=== PATIENT | male | born 1960 | race Caucasian/White ===

== ENCOUNTER 2019-12-08 09:28 | Inpatient (IN) | payer BC ==
[~2019-12-08] VITALS: Ht 180.3 cm; Wt 112.0 kg
[2019-12-08] MEDS ORDERED: albuterol 2.5 MG/3 ML nebule NEB ONE (10:10)
[2019-12-08 10:13] LABS: BASOPHILS % (AUTO) 0.6 % (0-1); EOSINOPHILS # (AUTO) 0.2 X10'3 (0-0.9); EOSINOPHILS % (AUTO) 3.6 % (0-6); HEMATOCRIT 41.9 % (42.0-52.0); HEMOGLOBIN 14.1 g/dl (14.0-17.9); LYMPHOCYTES # (AUTO) 1.4 X10'3 (1.1-4.8); LYMPHOCYTES % (AUTO) 27.2 % (21-51); MEAN CORPUSCULAR HEMOGLOBIN 30.9 PG (27.0-31.0); MEAN CORPUSCULAR HGB CONC 33.8 g/dL (33.0-36.5); MEAN CORPUSCULAR VOLUME 91.6 FL (78-98); MEAN PLATELET VOLUME 8.2 FL (7.4-10.4); MONOCYTES # (AUTO) 0.3 X10'3 (0-0.9); MONOCYTES % (AUTO) 6.3 % (2-12); NEUTROPHILS # (AUTO) 3.2 X10'3 (1.8-7.7); NEUTROPHILS % (AUTO) 62.3 % (42-75); PLATELET COUNT 302 X10'3 (140-440); RED BLOOD COUNT 4.57 X10'6 (4.70-6.10); RED CELL DISTRIBUTION WIDTH 15.2 % (11.5-14.5); WHITE BLOOD COUNT 5.2 X10'3 (4.5-11.0)
[2019-12-08 10:19] LABS: PARTIAL THROMBOPLASTIN TIME 26 SECONDS (22-32)
--- NOTE | 2019-12-08 10:25 | NUR ---
Breaking primary RN, respiratory in room with pt,
[2019-12-08 10:28] LABS: D-DIMER 0.84 MG/L FEU (0-0.50)
[2019-12-08 10:31] LABS: ALANINE AMINOTRANSFERASE 42 U/L (12-78); ALBUMIN 3.2 G/DL (3.4-5.0); ALBUMIN/GLOBULIN RATIO 0.8 (1.1-1.5); ALKALINE PHOSPHATASE 55 IU/L (46-116); ASPARTATE AMINO TRANSFERASE 28 U/L (10-37); BILIRUBIN,TOTAL 0.4 MG/DL (0.1-1.0); CALCIUM 8.7 MG/DL (8.5-10.1); CHLORIDE 104 MMOL/L (99-107); GLUCOSE 172 MG/DL (70-104); SODIUM 139 MMOL/L (135-145); TOTAL CARBON DIOXIDE 27.2 MMOL/L (24-32); TOTAL PROTEIN 7.2 G/DL (6.4-8.2); eGFR 76 ML/MIN
[2019-12-08 10:32] LABS: ANION GAP 8 (8-16); BLOOD UREA NITROGEN 7 MG/DL (7-18)
--- NOTE | 2019-12-08 10:41 | NUR ---
Breaking Primary RN, RT is finished with pt, he is still sounding junky, spoke to provider Jeannette, he will order continuous neb and steriod, pt is to have CT
[2019-12-08] MEDS ORDERED: iohexol 350MG/ML 100ml bottle IV ONE (10:42)
[2019-12-08] MEDS ORDERED: albuterol 2.5 MG/3 ML nebule CONTNEB PRN (10:45)
[2019-12-08] MEDS ORDERED: methylPREDNISolone sod succ 125mg/2ml vial IV ONE (10:45)
[2019-12-08] MEDS ORDERED: MEROPENEM 1GM/NS 50ML IVPB 50 ML IV STA (12:53)
[2019-12-08] MEDS ORDERED: CefTRIAXone/D5W-Rocephin 1gm 50 ML IV ONE (12:55)
[2019-12-08] MEDS ORDERED: diphenhydrAMINE 25mg capsule PO PRN (14:20)
[2019-12-08] MEDS ORDERED: morphine 2 MG/ML inj. syringe IV PRN ×2 (14:20)
[2019-12-08] MEDS ORDERED: magnesium Cl slow-release 64mg tablet PO PRN (14:20)
[2019-12-08] MEDS ORDERED: HYDROcodone/acetaminophen 5mg/325mg tablet PO PRN (14:20)
[2019-12-08] MEDS ORDERED: potassium CL 10mEq/100ml bag 100 ML IV PRN ×2 (14:20)
[2019-12-08] MEDS ORDERED: acetaminophen 650mg rectal suppository RC PRN (14:20)
[2019-12-08] MEDS ORDERED: mag hydrox/Alum hydrox/simeth 30ml oral suspension PO PRN (14:20)
[2019-12-08] MEDS ORDERED: magnesium 4gm in 100ml NS 100 ML IV PRN (14:20)
[2019-12-08] MEDS ORDERED: acetaminophen 325mg tablet PO PRN ×2 (14:20)
[2019-12-08] MEDS ORDERED: magnesium hydroxide 30ml (MOM) UD suspension PO PRN (14:20)
[2019-12-08] MEDS ORDERED: potassium Cl 20 mEq SR tablet PO PRN ×2 (14:20)
[2019-12-08] MEDS ORDERED: magnesium 2GM in 50ml NS 50 ML IV PRN (14:20)
[2019-12-08] MEDS ORDERED: bisacodyl 10mg suppository rectal RC PRN (14:20)
[2019-12-08] MEDS ORDERED: HYDROcodone/acetaminophen 10/325mg tab PO PRN (14:20)
[2019-12-08] MEDS ORDERED: ondansetron/PF 4mg/2ml inj IV PRN (14:20)
[2019-12-08] MEDS: normal saline 1000ml 1,000 ML IV SCH (14:32)
[2019-12-08] MEDS: ipratropium/albuterol 3ml nebule NEB SCH ×2 (15:00→20:03)
[2019-12-08 15:05] LABS: HEMOGLOBIN A1C 6.3 % (4.5-6.2)
[2019-12-08] MEDS: levoFLOXACIN-Levaquin 750MG/D5 150 ML IV SCH (15:14)
[2019-12-08 16:15] VITALS: BP 147/93
--- NOTE | 2019-12-08 16:45 | NUR ---
Patient to room 360 A via wheelchair with x1 staff. Patient alert, oriented and in no apparent distress at this time. VSS, call light in reach, bed locked and lowered. Patient lungs coarse in the lower lungs and upper lungs wheezy. Patient skin clean dry and intact.
[2019-12-08] MEDS: metoprolol succinate 25mg (24-HOUR) SR. Tablet PO SCH (17:42)
--- NOTE | 2019-12-08 18:16 | NUR ---
Problems reprioritized. Patient report given, questions answered & plan of care reviewed with LEÓN Luis.
--- NOTE | 2019-12-08 18:25 | NUR ---
Patient in room [facility]. I have received report from LEÓN Senior and had the opportunity to ask questions and assume patient care. Addendum: 12/08/19 at 1826 by Lauren Falcon RN Amended: Links added.
[2019-12-08 19:00] VITALS: BP 156/83
[2019-12-08] MEDS: methylPREDNISolone sod succ 125mg/2ml vial IV SCH (19:50)
[2019-12-08] MEDS: heparin, porcine 5000 units/ml vial SQ SCH (19:50)
[2019-12-08] MEDS: K and/or MAG REPLACEMENT MC SCH (20:00)
[2019-12-08] MEDS ORDERED: guaiFENesin/DM 10ml UD oral syrup PO PRN (20:30)
[2019-12-08] MEDS ORDERED: temazepam 15mg capsule PO PRN (21:00)
[2019-12-09] VITALS: BP 155/92
[2019-12-09] MEDS: ipratropium/albuterol 3ml nebule NEB SCH ×5 (00:17→15:00)
[2019-12-09] MEDS: normal saline 1000ml 1,000 ML IV SCH ×2 (01:18→11:54)
[2019-12-09] MEDS: methylPREDNISolone sod succ 125mg/2ml vial IV SCH ×4 (01:18→20:00)
[2019-12-09 04:50] LABS: BASOPHILS % (AUTO) 0.1 % (0-1); EOSINOPHILS % (AUTO) 0 % (0-6); HEMATOCRIT 39.9 % (42.0-52.0); HEMOGLOBIN 13.6 g/dl (14.0-17.9); LYMPHOCYTES # (AUTO) 0.9 X10'3 (1.1-4.8); LYMPHOCYTES % (AUTO) 11.5 % (21-51); MEAN CORPUSCULAR HEMOGLOBIN 31.1 PG (27.0-31.0); MEAN CORPUSCULAR HGB CONC 34.1 g/dL (33.0-36.5); MEAN CORPUSCULAR VOLUME 91.3 FL (78-98); MEAN PLATELET VOLUME 8.2 FL (7.4-10.4); MONOCYTES # (AUTO) 0.1 X10'3 (0-0.9); MONOCYTES % (AUTO) 1.7 % (2-12); NEUTROPHILS # (AUTO) 6.7 X10'3 (1.8-7.7); NEUTROPHILS % (AUTO) 86.7 % (42-75); PLATELET COUNT 311 X10'3 (140-440); RED BLOOD COUNT 4.37 X10'6 (4.70-6.10); RED CELL DISTRIBUTION WIDTH 15.1 % (11.5-14.5); WHITE BLOOD COUNT 7.8 X10'3 (4.5-11.0)
[2019-12-09 05:11] LABS: ALANINE AMINOTRANSFERASE 38 U/L (12-78); ALBUMIN/GLOBULIN RATIO 0.8 (1.1-1.5); ALKALINE PHOSPHATASE 49 IU/L (46-116); ANION GAP 10 (8-16); ASPARTATE AMINO TRANSFERASE 20 U/L (10-37); BILIRUBIN,TOTAL 0.2 MG/DL (0.1-1.0); BLOOD UREA NITROGEN 11 MG/DL (7-18); BUN/CREATININE RATIO 12.2 (5.4-32.0); CALCIUM 8.5 MG/DL (8.5-10.1); CHLORIDE 105 MMOL/L (99-107); CHOL/HDL RATIO 4.7 (0.00-4.99); CHOLESTEROL 237 MG/DL (0-200); GLUCOSE 176 MG/DL (70-104); HDL CHOLESTEROL 50 MG/DL (35-60); LDL CHOLESTEROL 173 MG/DL (50-100); MAGNESIUM 2.2 MG/DL (1.5-2.4); PHOSPHORUS 3.1 MG/DL (2.3-4.5); POTASSIUM 4.2 MMOL/L (3.5-5.1); SODIUM 141 MMOL/L (135-145); TOTAL CARBON DIOXIDE 26.1 MMOL/L (24-32); TOTAL PROTEIN 6.9 G/DL (6.4-8.2); TRIGLYCERIDES 61 MG/DL (20-135); eGFR 86 ML/MIN
--- NOTE | 2019-12-09 06:20 | NUR ---
Patient in room [facility]. I have received report from LEÓN Luis and had the opportunity to ask questions and assume patient care.
--- NOTE | 2019-12-09 06:22 | NUR ---
Problems reprioritized. Patient report given, questions answered & plan of care reviewed with LEÓN RODRIGUEZ. Addendum: 12/09/19 at 0623 by Lauren Falcon RN Amended: Links added.
[2019-12-09 07:07] VITALS: BP 169/105
[2019-12-09 07:08] VITALS: BP 158/93
[2019-12-09] MEDS ORDERED: NO HOME MEDS (07:26)
[2019-12-09] MEDS: K and/or MAG REPLACEMENT MC SCH ×2 (07:27→20:00)
[2019-12-09] MEDS: levoFLOXACIN-Levaquin 750MG/D5 150 ML IV SCH (07:44)
[2019-12-09] MEDS: metoprolol succinate 25mg (24-HOUR) SR. Tablet PO SCH (07:45)
[2019-12-09] MEDS: heparin, porcine 5000 units/ml vial SQ SCH ×2 (07:45→19:59)
[2019-12-09 11:33] VITALS: BP 175/103
[2019-12-09 14:10] VITALS: BP 145/80
[2019-12-09] MEDS ORDERED: pantoprazole 40mg Tablet.DR PO ONE (17:52)
[2019-12-09] MEDS ORDERED: ipratropium/albuterol 3ml nebule NEB PRN (17:55)
[2019-12-09 18:00] VITALS: BP 152/100
--- NOTE | 2019-12-09 18:25 | NUR ---
Problems reprioritized. Patient report given, questions answered & plan of care reviewed with LEÓN Wallace.
--- NOTE | 2019-12-09 19:00 | NUR ---
Paged hospitalist regarding patient BP: 152/100, Patient is asymptomatic. Hospitalist never returned my call.
[2019-12-09] MEDS: lactobacillus rhamnosus 10,000 MMU CELLS/CAPSULE PO SCH (19:59)
[2019-12-09 20:33] LABS: CLARITY,URINE CLEAR (Clear); COLOR,URINE STRAW (Yellow); GLUCOSE, URINE >=1000 mg/dl (Neg); KETONES,URINE NEGATIVE (Neg); LEUKOCYTE ESTERASE ,URINE NEGATIVE (Neg); NITRITES, URINE NEGATIVE (Neg); OCCULT BLOOD,URINE NEGATIVE (Neg); PH,URINE 6.5 (4.8-8.0); PROTEIN,URINE NEGATIVE (Neg); UA COLLECTION TYPE NON-SPECIFIED; UROBILINOGEN,URINE 0.2 E.U/dL (0.2-1.0)
[2019-12-09 20:38] LABS: BACTERIA,URINE NONE SEEN /HPF (Neg); RBC,URINE NONE SEEN /HPF (0-2); SQUAMOUS EPITHELIAL CELL,UR FEW /LPF (FEW); WBC,URINE NONE SEEN /HPF (0-4)
[2019-12-10 00:55] VITALS: BP 159/94
[2019-12-10] MEDS: methylPREDNISolone sod succ 125mg/2ml vial IV SCH ×3 (02:04→14:00)
[2019-12-10 05:30] LABS: BASOPHILS % (AUTO) 0.1 % (0-1); EOSINOPHILS % (AUTO) 0 % (0-6); HEMATOCRIT 40.3 % (42.0-52.0); HEMOGLOBIN 13.9 g/dl (14.0-17.9); LYMPHOCYTES # (AUTO) 1.2 X10'3 (1.1-4.8); LYMPHOCYTES % (AUTO) 8.8 % (21-51); MEAN CORPUSCULAR HEMOGLOBIN 31.5 PG (27.0-31.0); MEAN CORPUSCULAR HGB CONC 34.5 g/dL (33.0-36.5); MEAN CORPUSCULAR VOLUME 91.4 FL (78-98); MEAN PLATELET VOLUME 8.6 FL (7.4-10.4); MONOCYTES # (AUTO) 0.4 X10'3 (0-0.9); MONOCYTES % (AUTO) 2.9 % (2-12); NEUTROPHILS # (AUTO) 12.2 X10'3 (1.8-7.7); NEUTROPHILS % (AUTO) 88.2 % (42-75); PLATELET COUNT 387 X10'3 (140-440); RED BLOOD COUNT 4.41 X10'6 (4.70-6.10); RED CELL DISTRIBUTION WIDTH 15.2 % (11.5-14.5); WHITE BLOOD COUNT 13.9 X10'3 (4.5-11.0)
[2019-12-10 05:35] LABS: ALANINE AMINOTRANSFERASE 42 U/L (12-78); ALBUMIN 3.1 G/DL (3.4-5.0); ALBUMIN/GLOBULIN RATIO 0.8 (1.1-1.5); ALKALINE PHOSPHATASE 50 IU/L (46-116); ANION GAP 8 (8-16); ASPARTATE AMINO TRANSFERASE 20 U/L (10-37); BILIRUBIN,TOTAL 0.2 MG/DL (0.1-1.0); BLOOD UREA NITROGEN 15 MG/DL (7-18); BUN/CREATININE RATIO 16.5 (5.4-32.0); CALCIUM 8.8 MG/DL (8.5-10.1); CHLORIDE 107 MMOL/L (99-107); CREATININE 0.91 MG/DL (0.60-1.10); GLUCOSE 170 MG/DL (70-104); MAGNESIUM 2.3 MG/DL (1.5-2.4); POTASSIUM 4.1 MMOL/L (3.5-5.1); SODIUM 142 MMOL/L (135-145); TOTAL CARBON DIOXIDE 26.6 MMOL/L (24-32); eGFR 85 ML/MIN
--- NOTE | 2019-12-10 06:31 | NUR ---
Problems reprioritized. Patient report given, questions answered & plan of care reviewed with LEÓN Cool.
--- NOTE | 2019-12-10 06:34 | NUR ---
Patient in room [facility]. I have received report from LEÓN Wallace and had the opportunity to ask questions and assume patient care.
[2019-12-10] MEDS ORDERED: pantoprazole 40mg Tablet.DR PO SCH (07:30)
[2019-12-10] MEDS: K and/or MAG REPLACEMENT MC SCH (08:00)
[2019-12-10] MEDS: lactobacillus rhamnosus 10,000 MMU CELLS/CAPSULE PO SCH (08:49)
[2019-12-10] MEDS: metoprolol succinate 25mg (24-HOUR) SR. Tablet PO SCH (08:50)
[2019-12-10] MEDS: heparin, porcine 5000 units/ml vial SQ SCH (08:50)
[2019-12-10] MEDS ORDERED: levoFLOXACIN 750MG TABLET PO SCH (11:00)
[2019-12-10 12:30] VITALS: BP 140/122
[2019-12-10] MEDS ORDERED: METO-395 PO (14:15)
[2019-12-10] MEDS ORDERED: BUDE10.22 INH (14:15)
[2019-12-10] MEDS ORDERED: LACT1CAP26 PO (14:15)
[2019-12-10] MEDS ORDERED: ROBDML PO (14:15)
[2019-12-10] MEDS ORDERED: PANT40TA4 PO (14:15)
[2019-12-10] MEDS ORDERED: LEVO750T46 PO (14:15)
[2019-12-10] MEDS ORDERED: ALBU8.5H8 INH (14:15)
[2019-12-10] MEDS ORDERED: PRED10TA23 PO (14:15)
[2019-12-10 14:50] LABS: HIV ANTIBODY 1&2 RAPID NON-REACTIVE (Neg)
[2019-12-10] MEDS ORDERED: AMLO5TAB4 PO (15:08)
--- NOTE | 2019-12-10 16:40 | NUR ---
Patient discharged with all belongings with him and escorted via nursing staff.
[2019-12-13 08:09] LABS: ANTINUCLEAR ANTIBODIES Negative (Negative)
[2019-12-13 18:22] LABS: ATYPICAL PANCA <1:20 titer (Neg:<1:20); CYTOPLASMIC (C-ANCA) <1:20 titer (Neg:<1:20); PERINUCLEAR (P-ANCA) <1:20 titer (Neg:<1:20)
== END 2019-12-10 16:30 | disposition home or self-care (01) | DRG 190 ==
LOC: ER 09:29 → ED HOLD 14:19 → EDBEDREQ 15:47 → SUR 3N 16:15
PROVIDERS: ADMIT Family Medicine; ATTEND Family Medicine
PROC: B32T1ZZ Computerized Tomography (CT Scan) of Left Pulmonary Artery using Low Osmolar Contrast (ICD-10-PCS; principal; 2019-12-08)
PROC: B3201ZZ Computerized Tomography (CT Scan) of Thoracic Aorta using Low Osmolar Contrast (ICD-10-PCS; 2019-12-08)
PROC: B32S1ZZ Computerized Tomography (CT Scan) of Right Pulmonary Artery using Low Osmolar Contrast (ICD-10-PCS; 2019-12-08)
DX: J44.0 Chronic obstructive pulmonary disease with (acute) lower respiratory infection (principal); J18.0 Bronchopneumonia, unspecified organism; F10.10 Alcohol abuse, uncomplicated; F41.0 Panic disorder [episodic paroxysmal anxiety]; Z80.1 Family history of malignant neoplasm of trachea, bronchus and lung; Z71.41 Alcohol abuse counseling and surveillance of alcoholic
CPT/HCPCS: 36415; 71045; 71275; 80053; 80061; 81001; 83036; 83605; 83735; 83880; 84100; 84145; 84484; 85025; 85379; 85610; 85730; 86038; 86256; 86694; 86703; 86720; 87040; 87081; 87305; 93005; 93306; 94640; 94760; 96365; 96375; 99285; G0378; J0696; J1644; J1956; J2185; J2930; J7030; Q9967

== ENCOUNTER 2024-02-21 15:47 | Outpatient (CLI) | payer BC ==
[~2024-02-21 15:47] MED LIST: ALBU8.5H17 INH; AMLO5TAB4 PO; BUDE10.22 INH; LACT1CAP26 PO; LEVO750T68 PO; METO-395 PO; PANT40TA54 PO; ROBDML PO
[2024-02-21 16:09] LABS: TOTAL HEMOGLOBIN 16.3 G/dl (14.0-17.9)
== END 2024-02-21 23:59 | disposition home or self-care (01) ==
LOC: RT 15:47
PROVIDERS: ATTEND Internal Medicine
DX: R06.02 Shortness of breath (principal)
CPT/HCPCS: 85018; 94010; 94727; 94729